=== PATIENT | female | born 1960 ===

== ENCOUNTER 2020-01-07 09:54 | Outpatient (REF) | payer MEDICAID, SELFPAY ==
--- NOTE | 2020-01-07 08:30 | PAPFT_PTH ---
PATIENT: Maryjane Babb LOC: [facility] U#:[id number] AGE/SX: 59/F ROOM: RE01/07/[address]: Adela Jean : 1960 BED: DIS: 01/07/2020 SPEC #: [id number] RECD: 01/07/20 18:36 STATUS: MARTÍNEZ REQ #: [id number] JR: 01/07/20 08:[address]: Adela Jean DEPT: [facility] Cytology RECD BY: Dione Kirby ENTERED: 01/07/20 18:36 SP TYPE: PAPFT OTHR DR: Prachi Gatica Tissues: 1 - CX/ENDOCX FOR PAP SMEARS Procedures: PAP THIN PREP/[facility] Screening HPV DNA PROBE Comments: [id number] (HPV 16/ 18/45)
== END 2020-01-07 10:14 ==
LOC: NCHCN 09:54
PROVIDERS: PCP Nurse Practitioner Family; Visit Provider Physician Assistant
DX: Z12.4 Encounter for screening for malignant neoplasm of cervix (principal); Z01.419 Encounter for gynecological examination (general) (routine) without abnormal findings; Z11.51 Encounter for screening for human papillomavirus (HPV); R87.810 Cervical high risk human papillomavirus (HPV) DNA test positive
CPT/HCPCS: 88142; 87624

== ENCOUNTER 2022-12-30 19:01 | Outpatient (REF) | payer MEDICAID, SELFPAY ==
[2022-12-30 18:49] LABS: INR 1.2 (0.9-1.1); Prothrombin Time 12.1 sec (9.1-11.1)
== END 2022-12-30 19:02 | disposition home or self-care (01) ==
LOC: NCHCN 19:01
PROVIDERS: PCP Nurse Practitioner Family; Visit Provider Physician Assistant
DX: Z96.641 Presence of right artificial hip joint (principal)
CPT/HCPCS: 85610

== ENCOUNTER 2023-02-23 18:35 | Outpatient (REF) | payer MEDICAID, SELFPAY ==
--- NOTE | 2023-02-23 11:00 | PAPFT_PTH ---
PATIENT: Maryjane Babb LOC: [facility]#:[id number] AGE/SX: 62/F ROOM: RE02/23/[address]: Adela Jean : 1960 BED: DIS: 02/23/2023 SPEC #: [id number] RECD: 02/24/23 13:04 STATUS: MARTÍNEZ REKarlie #: [id number] JR: 02/23/23 11:[address]: Adela Jean DEPT: [facility] Cytology RECD BY: Dione Kirby ENTERED: 02/24/23 13:05 SP TYPE: PAPFT OTHR DR: Prachi Gatica Tissues: 1 - CX/ENDOCX FOR PAP SMEARS Procedures: PAP THIN PREP/[facility] Screening HPV DNA PROBE Comments: [id number]
== END 2023-02-23 18:36 | disposition home or self-care (01) ==
LOC: NCHCN 18:35
PROVIDERS: PCP Nurse Practitioner Family; Visit Provider Physician Assistant
DX: Z12.4 Encounter for screening for malignant neoplasm of cervix (principal); Z01.419 Encounter for gynecological examination (general) (routine) without abnormal findings
CPT/HCPCS: 88142; 87624

== ENCOUNTER 2023-03-09 09:46 | Outpatient (REF) | payer MEDICAID, SELFPAY ==
[2023-03-09 19:16] LABS: Calculated LDL 135 mg/dL (<100); Cholesterol 242 mg/dL (<200); HDL Cholesterol 97 mg/dL (40-60); TSH (W/Ref FT4) 3.06 uIU/mL (0.36-3.74); Triglyceride 50 mg/dL (<150)
== END 2023-03-09 09:47 | disposition home or self-care (01) ==
LOC: NCHCN 09:46
PROVIDERS: Physician Assistant; PCP Nurse Practitioner Family; Visit Provider Internal Medicine
DX: E03.9 Hypothyroidism, unspecified (principal); E78.89 Other lipoprotein metabolism disorders
CPT/HCPCS: 80061; 84443

== ENCOUNTER 2024-02-28 15:10 | Outpatient (REF) | payer MEDICAID, SELFPAY ==
[2024-02-28 21:02] LABS: TSH (W/Ref FT4) 3.52 uIU/mL (0.36-3.74)
[2024-02-29 10:49] LABS: ALT 26 U/L (14-59); AST 25 U/L (15-37); Albumin 4.4 g/dL (3.4-5.0); Alkaline Phosphatase 67 U/L (46-116); BUN 10 mg/dL (7-18); CO2 30.8 mmol/L (21.0-32.0); CREATININE 0.8 mg/dL (0.55-1.02); Chloride 102 mmol/L (98-107); Estimated GFR 82.23 (mL/min/1.73m2); Glucose 103 mg/dL (74-106); Potassium 4.6 mmol/L (3.5-5.1); Sodium 140 mmol/L (136-145); Total Protein 7.7 g/dL (6.4-8.2)
[2024-03-08 09:08] LABS: Misc Referral (UVM) See Comments
== END 2024-02-28 15:11 | disposition home or self-care (01) ==
LOC: NCHCN 15:10
PROVIDERS: Visit Provider Physician Assistant
DX: E03.9 Hypothyroidism, unspecified (principal)
CPT/HCPCS: 82947; 84520; 82040; 82247; 82310; 82374; 82435; 82565; 84075; 84132; 84155; 84295; 84443; 84450; 84460